=== PATIENT | female | born 1980 | race Caucasian/White ===

== ENCOUNTER 2018-11-28 12:19 | Day surgery (SDC) | payer OTHER ==
[~2018-11-28] VITALS: Ht 160 cm; Wt 46.7 kg
[2018-11-28 12:48] LABS: HEMATOCRIT 38.7 % (36.0-48.0); HEMOGLOBIN 13.2 g/dL (12-16); MCH 31.2 pg (26.0-34.0); MCHC 34.1 g/dL (31.0-37.0); MCV 91.5 fL (80.0-100.0); MEAN PLATELET VOLUME 10.2 fL (7.4-10.4); RBC 4.23 10x6/uL (4.00-5.40); RDW 12.4 % (11.5-14.5); WBC 7.2 10x3/uL (4.8-10.8)
[2018-11-28] MEDS ORDERED: CELEXA20 MG PO (13:09)
[2018-11-28] MEDS ORDERED: BUSPAR10 MG PO (13:09)
[2018-11-28 13:15] VITALS: BP 120/69; Ht 160 cm; Wt 46.7 kg
[2018-11-28] MEDS ORDERED: MEPERIDINE HCL50 MG PO (14:57)
--- NOTE | 2018-11-28 17:49 | NUR ---
1715 IV REMOVED AND INSTRUCTIONS GIVEN TO PT AND FAMILY.
--- NOTE | 2018-11-29 14:40 | OP ---
PATIENT NAME: NGUYỄN HOWARD MEDICAL RECORD: [id number] LOCATION:AR ADMISSION DATE: SURGEON: SHAYNE TEE MD DATE OF OPERATION: 11/28/2018 PREOPERATIVE DIAGNOSIS: Spiral fracture of the right fifth metacarpal. POSTOPERATIVE DIAGNOSIS: Spiral fracture of the right fifth metacarpal. PROCEDURE: Open reduction and internal fixation of right fifth metacarpal fracture. SYSTEM USED: [employer] handset from [employer], 1.7 size. OPERATIVE SUMMARY IN DETAIL: After obtaining the appropriate preoperative orthopedic surgery consent as well as anesthetic consultation, evaluation, and clearance, the patient was brought to the operating room and placed on the operating table in the supine position. After adequate general laryngeal mask airway was administered, tourniquet was placed about the proximal aspect of the right upper extremity. The right upper extremity was then prepped and draped in routine sterile fashion. At this point, the appropriate time-out was taken and agreed upon by all in the operative suite. Arm was elevated and exsanguinated. Tourniquet was inflated to 250 mmHg. Routine mid lateral incision was made on the lateral aspect of the finger. The extensor digiti minimi was identified and was protected along with the other extensors. Dissection was taken down to the fracture. The fracture had to be cleansed of all of its early healing, and after all early healing was removed, the fracture was reduced and held in reduced position while it was plated with a 1.7 3D plate with a total 8 holes. This is the 2 row plate. After serially and sequentially fixing with both combination of compression screws as well as locking screws, final radiographs were taken with fluoroscopy as this was done under fluoroscopic guidance. These were submitted to radiologist for final review. The wound was copiously irrigated and closed. A very small rent in the dorsal delgado of the fifth metacarpal was closed with 3-0 Prolene. The skin was then closed by Jong Sin, legislative assistant. The area was locally infiltrated with 0.25% Marcaine plain. Sterile dressings were applied. Tourniquet was inflated. Ulnar gutter splint was applied. The patient was awakened and taken to the recovery room in stable condition. All final needle and sponge counts were correct. TRANSINT:[id number] Voice Confirmation ID: [id number] DOCUMENT ID: [id number] SHAYNE TEE MD at 1440 CC: [id number] DICTATION DATE: 11/28/18 1500 [employer]LTIMATE [employer] TRAINER: 11/28/18 1539 [facility] 11/28/18 [id number] [place] [address]
== END 2018-11-28 17:45 | disposition home or self-care (01) ==
LOC: D.OPS 12:19 → D.PAN 13:45 → D.OPS 17:45
PROVIDERS: Anesthesiology; ATTEND Orthopaedic Surgery
DX: S62.306A Unspecified fracture of fifth metacarpal bone, right hand, initial encounter for closed fracture (principal); X58.XXXA Exposure to other specified factors, initial encounter; Z01.812 Encounter for preprocedural laboratory examination

== ENCOUNTER 2019-01-10 14:57 | Emergency (ER) | payer MEDICAID ==
[~2019-01-10] VITALS: Ht 160 cm; Wt 46.8 kg
[~2019-01-10 14:57] MED LIST: BUSPAR10 MG PO; CELEXA20 MG PO; MEPERIDINE HCL50 MG PO
[2019-01-10 15:27] VITALS: Ht 160 cm; Wt 46.8 kg
[2019-01-10] MEDS ORDERED: TALWIN NX1 TAB PO (16:44)
[2019-01-10 17:41] VITALS: BP 134/73
== END 2019-01-10 18:32 | disposition home or self-care (01) ==
LOC: D.ER 14:57
DX: S62.306A Unspecified fracture of fifth metacarpal bone, right hand, initial encounter for closed fracture (principal); W22.01XA Walked into wall, initial encounter; F17.210 Nicotine dependence, cigarettes, uncomplicated

== ENCOUNTER 2019-06-14 11:04 | Emergency (ER) | payer SELFPAY ==
[~2019-06-14] VITALS: Ht 160 cm; Wt 52.3 kg
[~2019-06-14 11:04] MED LIST changes: +TALWIN NX1 TAB PO
[2019-06-14 11:13] VITALS: Ht 160 cm; Wt 52.3 kg
[2019-06-14 12:52] VITALS: BP 109/57
== END 2019-06-14 12:53 | disposition home or self-care (01) ==
LOC: D.ER 11:04
DX: M54.5 Low back pain (principal)